=== PATIENT | male | born 1975 | race Caucasian/White ===

== ENCOUNTER 2020-06-11 00:34 | Emergency (ER) | payer OTHER, SELFPAY ==
[2020-06-11 00:35] VITALS: BP 151/91; PULSE 112; RESP 14; TEMP 35.8; O2SAT 97; BMI 29.7
--- NOTE | 2020-06-11 01:25 | CT_ITS ---
STUDY: CT BRAIN WITHOUT CONTRAST REASON FOR EXAM: Male, 44 years old. DIZZINESS.ELEVATED BP RADIATION DOSAGE (If Supplied By Facility): CTDIvol = ( 44.99 ) mGy, DLP = ( 863.60 ) mGycm TECHNIQUE: Transaxial CT imaging of the brain was performed without administration of intravenous contrast material. Individualized dose optimization techniques were used for this CT. COMPARISON: No relevant priors. FINDINGS: Normal soft tissue structures. Normal calvarium. Normal size ventricles and extra-axial spaces for the patient''s age. Normal white matter tracts of the cerebral hemispheres. Normal basal ganglia and thalami. Normal brainstem. Normal cerebellum. There is no intracranial hemorrhage. There are no findings of an acute ischemic infarction. Normal visualized paranasal sinuses. CT/Brain/Head without Contrast IMPRESSION: Normal unenhanced CT scan of the brain. Electronically Signed: Zita Palacios MD at 2:21 EST Tel , Service support ,
--- NOTE | 2020-06-11 02:14 | ED.VIS.GEN ---
History of Present Illness Chief Complaint: Dizziness Informant: Patient Onset: Weeks - 1 Context: Sudden Onset Timing: Intermittent, Lasts - Minutes or hours Quality: Spinning dizziness Location: Head Current Severity: - - Gone Maximum Severity: Severe Worsened by: Movement especially rolling over to get out of bed in the mornings Relieved by: Remaining still Associated Symptoms: Nausea occasionally. Narrative: Patient has been having what he is calling vertigo over the past week. He saw his PCP today, had some blood work ordered and was prescribed meclizine, referred to ENT. He made an appointment to see them after the weekend. Tonight, he lied down, this has been making his symptoms worse in the past week, tonight he became very tremulous in both of his hands, and he became very nervous. He admits to having pretty bad anxiety. He does not know if this was related or not, but states this occurred about 10 or 15 minutes after taking the first meclizine tablet and he was afraid that he was having a terrible reaction or allergy to it. He states now upon arriving to the hospital he feels better and his vertigo was gone as well. The symptoms have been intermittent. When he wakes up in the morning or rolls out of bed, they are fairly significant. He cannot recall symptoms consistently occurring when he turns his body or head in one direction versus another. He states he has chronically intermittent tinnitus, but it has not been associated with this vertigo. Also denies headaches associated with it although he did have one a couple days ago that went away. He denies any lapses in consciousness. Denies any focal numbness or tingling or weakness that is unexplained by having his arm in a funny position in bed. He denies any chest pain or trouble breathing. He takes no prescriptions other than the meclizine he was just given. - Past Medical History (1) Anxiety Status: Chronic Past Medical History - Allergies and Home Meds Allergies/Adverse Reactions: Allergies No Known Allergies Allergy (Verified 06/11/20 00:38) Primary Care Physician: Angella Thomas MD [NON-STAFF] - 1 Week if not improving (And/or ENT as scheduled) Lives: Spouse/ Significant Other Smoking Status: Former smoker Drugs: None Review of Systems General: Denies: Chills, Fever, Sweats Eyes: Denies: Visual changes - bilaterally, Diplopia ENT: Denies: Bilateral ear pain, Rhinorrhea, Sore throat Cardiovascular: Denies: Chest pain, Palpitations Respiratory: Denies: Dyspnea, Cough, Dyspnea on exertion Gastrointestinal: Reports: Nausea - Occasionally with vertigo, not currently. Denies: Abdominal pain, Vomiting, Diarrhea, Melena, Hematochezia Genitourinary: Denies: Dysuria, Hematuria, Frequency Musculoskeletal: Denies: Myalgias, Neck pain, Back pain, Extremity Pain Skin: Denies: Rash, Wounds Neurological: Reports: - - Vertigo. See HPI.. Denies: Headache, Weakness, Numbness Psych: Reports: Anxiety. Denies: Depression Physical Exam Vital Signs/Narrative: Vital Signs Temp Pulse Resp BP Pulse Ox 06/11/20 00:35 96.4 F L 112 H 14 151/91 H 97 Inital Vital Signs reviewed: Yes General: Well nourished, Well developed, No Acute Distress Head: Normocephalic, Atraumatic Eyes: Perrl, EOMI, - - No horizontal, rotatory, or vertical nystagmus bilaterally. ENT: Moist mucous membranes, No rhinorrhea, - - TMs not visible due to hard cerumen in EAC bilaterally. Negative for: Sinus tenderness Neck: Supple, Nontender, No lymphadenopathy Cardiovascular: Regular rate, Regular rhythm, No murmurs Respiratory: No distress, CTA bilaterally, Chest nontender Abdomen: Soft, Nontender, Nondistended, Normal bowel sounds Back: Nontender, Normal Inspection Extremities: Nontender, No edema Skin: Normal color, No rash Neurological: Alert, Oriented x3, Cranial nerves II-XII grossly intact, Normal Strength, Normal Sensation, Normal Gait, - - Normal [id number] and [id number] bilaterally. Negative [place] bilaterally, with no nystagmus. Psychological: Normal affect, Normal Mood Diagnostic/Tx/Re-eval Clinical Impression(s) from Imaging Studies Brain CT 06/11/20 01:25 IMPRESSION: Normal unenhanced CT scan of the brain. Electronically Signed: Zita Palacios MD at 2:21 EST Tel , Service support , - Medical Decision Making CT head was obtained, patient is very worried that there might be an underlying problem. It is normal, I reassured him this is likely peripheral vertigo. I suspect that his vertigo is resolved now because the meclizine is working and helping his symptoms, and I do not think he had a reaction to the medication only 10 or 15 minutes after taking it. I encouraged him to continue using the meclizine as needed and to follow-up with ENT as scheduled if he has persistent symptoms throughout the weekend. He is comfortable with that plan given appropriate discharge instructions. ED Disposition - Plan for ED Patient: Disposition: Home or Assisted Living Diagnosis: Peripheral vertigo, unspecified Instructions: ED Vertigo, Unspecified Referrals: Angella Thomas MD [NON-STAFF] - 1 Week if not improving (And/or ENT as scheduled)
[2020-06-11 02:24] VITALS: BP 122/81; PULSE 75; RESP 12; O2SAT 95
[2020-06-11 02:43] VITALS: BP 139/89; PULSE 75; RESP 14; O2SAT 95
== END 2020-06-11 02:44 | disposition home or self-care (01) ==
PROVIDERS: Emergency Provider Emergency Medicine; PCP Family Medicine
DX: H81.399 Other peripheral vertigo, unspecified ear (principal); F41.9 Anxiety disorder, unspecified; Z79.899 Other long term (current) drug therapy; Z87.891 Personal history of nicotine dependence
CPT/HCPCS: 70450; 99284